=== PATIENT | female | born 1975 | race American Indian/Alaskan Native ===

== ENCOUNTER 2016-11-21 16:03 | Emergency (ER) | payer OTHER ==
[2016-11-21 16:11] VITALS: BP 131/89; PULSE 74; RESP 16; TEMP 98.2; O2SAT 99
--- NOTE | 2016-11-21 16:20 | ED PDOC ---
Upper Extremity Pain/Injury Time Seen by Provider: 11/21/16 16:11 Chief Complaint (Nursing): Finger,Hand,&Wrist Chief Complaint (Provider): left wrist pain History Per: Patient History/Exam Limitations: no limitations Onset/Duration Of Symptoms: Hrs (just prior to arrival) Current Symptoms Are (Timing): Still Present Severity: Moderate Additional Complaint(s): 41 year old right hand dominant female presents to ED with pain to left wrist status post lifting heavy bag of garbage. Patient felt pop in wrist area. She took 2 Motrin which did not help the pain. No associated numbness or tingling to affected area. Past Medical History Reviewed: Historical Data, Nursing Documentation, Vital Signs Vital Signs: Last Vital Signs Temp 98.2 F 11/21/16 16:08 Pulse 74 11/21/16 16:08 Resp 16 11/21/16 16:08 BP 131/89 11/21/16 16:08 Pulse Ox 99 11/21/16 16:08 - Medical History PMH: No Chronic Diseases - Surgical History Other surgeries: fibroid removal, ovarian cyst removal - Family History Family History: States: No Known Family Hx - Living Arrangements Living Arrangements: With Family - Social History Current smoker - smoking cessation education provided: Yes Alcohol: Social Drugs: Denies - Home Medications Home Medications: Ambulatory Orders Medication Instructions Recorded Ibuprofen [Motrin Tab] 800 mg PO Q8 PRN #20 tab 11/21/16 - Allergies Allergies/Adverse Reactions: Allergies Allergy/AdvReac Type Severity Reaction Status Date / Time No Known Allergies Allergy Verified 11/21/16 16:08 Review of Systems ROS Statement: Except As Marked, All Systems Reviewed And Found Negative Musculoskeletal: Positive for: Other (left wrist injury) Neurological: Negative for: Numbness (no tingling) Physical Exam - Reviewed Nursing Documentation Reviewed: Yes Vital Signs Reviewed: Yes - Physical Exam Appears: Positive for: Well, Non-toxic, No Acute Distress Eye Exam: Positive for: Normal appearance Neck: Positive for: Painless ROM Extremity: Positive for: Other (mild tenderness to dorsum of left wrist with full rom, slight swelling noted with no ecchymosis) Neurologic/Psych: Positive for: Alert, Oriented - ECG O2 Sat by Pulse Oximetry: 99 (RA) Pulse Ox Interpretation: Normal - Other Rad Left wrist x-ray X-Ray: Interpreted by Me, Viewed By Me X-Ray Interpretation: no fx/dis Medical Decision Making Medical Decision Making: Initial Impression: 41 year old with left wrist injury Initial Plan: * PO tylenol * X-ray left wrist 16:56 XR shows no fracture/dislocation, as read by DOMINIC. Will apply pre-made velcro splint to affected wrist for patient comfort, see procedure note for additional details. Patient is medically stable and requires no further treatment in the ED at this time. Patient will be discharged home with Rx for Motrin 800mg. Counseling was provided and all questions were answered regarding diagnosis and need for follow up with the referred orthopedist. There is agreement to discharge plan. Return if symptoms persist or worsen. Clinical Impression: wrist sprain Scribe Attestation: Documented by Debra Maloney, acting as a scribe for Ani Bentley PA-C. Provider Scribe Attestation: All medical record entries made by the Scribe were at my direction and personally dictated by me. I have reviewed the chart and agree that the record accurately reflects my personal performance of the history, physical exam, medical decision making, and the department course for this patient. I have also personally directed, reviewed, and agree with the discharge instructions and disposition. Procedures - Time-Out Type of Procedure: Splint Placement Site of Procedure: Left Wrist Correct Patient: Yes Correct Procedure: Yes Correct Site Marked: Yes - Splinting Location: Left Wrist Pre-Made Type: velcro Pre-Proc Neuro Vasc Exam: normal Post-Proc Neuro Vasc Exam: normal Progress: Good placement, neurovascular status remains intact, patient tolerated procedure well with no immediate complications. Disposition - Clinical Impression Clinical Impression: Wrist sprain - Patient ED Disposition Is Patient to be Admitted: No Counseled Patient/Family Regarding: Studies Performed, Diagnosis, Need For Followup, Rx Given - Disposition Referrals: Reji Vasquez III, MD [Staff Provider] - Disposition: Routine/Home Disposition Time: 17:21 Condition: STABLE Additional Instructions: Ice, rest and elevate affected area. Take rx meds as directed as needed for pain. Follow up with employee health and orthopedist. Prescriptions: Ibuprofen [Motrin Tab] 800 mg PO Q8 PRN #20 tab PRN Reason: Pain, Moderate (4-7) Instructions: Wrist Sprain (ED) Forms: [facility] ED School/Work Excuse
--- NOTE | 2016-11-21 16:57 | RAD ---
PROCEDURE: Left Wrist Radiographs. HISTORY: trauma COMPARISON: None. FINDINGS: BONES: Normal. No fracture. JOINTS: Normal. No dislocation. SOFT TISSUES: Normal. OTHER FINDINGS: None. IMPRESSION: No evidence of acute fracture or dislocation.
== END 2016-11-21 17:51 | disposition home or self-care (01) ==
LOC: H.ER 16:03
DX: S63.502A Unspecified sprain of left wrist, initial encounter (principal); X50.9XXA Other and unspecified overexertion or strenuous movements or postures, initial encounter; Y92.89 Other specified places as the place of occurrence of the external cause; F17.200 Nicotine dependence, unspecified, uncomplicated

== ENCOUNTER 2016-12-25 14:20 | Emergency (ER) | payer OTHER ==
[2016-12-25 14:29] VITALS: PULSE 88; RESP 20; O2SAT 95
[2016-12-25] MEDS ORDERED: Sodium Chloride 0.9% 1,000 ML IV STA (15:03)
--- NOTE | 2016-12-25 15:05 | ED PDOC ---
HPI: Female Pain Time Seen by Provider: 12/25/16 15:02 Chief Complaint (Nursing): Female Genitourinary Chief Complaint (Provider): vaginal bleeding, lightheaded History Per: Patient Additional Complaint(s): 41-year-old female with history of anemia and fibroids presents to emergency department with lightheadedness and dizziness that started 2 days ago. Patient states she has been bleeding heavily for the past 2 days and states she has had abnormal bleeding for the past several years secondary to fibroids. Patient has had 5 transfusions in the past. She denies any chest pain, palpitations, shortness of breath or dyspnea on exertion upon arrival. No associated fever or chills. No abdominal pain, nausea or vomiting. Past Medical History Reviewed: Historical Data, Nursing Documentation, Vital Signs Vital Signs: Last Vital Signs Temp 97.9 F 12/25/16 14:28 Pulse 88 12/25/16 14:28 Resp 20 12/25/16 14:28 BP 111/72 12/25/16 14:28 Pulse Ox 95 12/25/16 14:28 - Medical History PMH: Anemia - Surgical History Other surgeries: right oopherectomy - Family History Family History: States: No Known Family Hx - Living Arrangements Living Arrangements: With Family - Social History Current smoker - smoking cessation education provided: Yes Alcohol: Social Drugs: Denies - Home Medications Home Medications: Ambulatory Orders Medication Instructions Recorded Ibuprofen [Motrin Tab] 800 mg PO Q8 PRN #20 tab 11/21/16 Medroxyprogesterone Acetate 10 mg PO DAILY #30 tablet 12/25/16 [Provera] - Allergies Allergies/Adverse Reactions: Allergies Allergy/AdvReac Type Severity Reaction Status Date / Time No Known Allergies Allergy Verified 12/25/16 14:29 Review of Systems ROS Statement: Except As Marked, All Systems Reviewed And Found Negative Constitutional: Negative for: Fever, Chills, Weakness Cardiovascular: Positive for: Light Headedness. Negative for: Chest Pain, Palpitations, Edema Respiratory: Negative for: Cough Gastrointestinal: Negative for: Nausea, Vomiting, Abdominal Pain Neurological: Positive for: Dizziness. Negative for: Headache Physical Exam - Reviewed Nursing Documentation Reviewed: Yes Vital Signs Reviewed: Yes - Physical Exam Appears: Positive for: Well, Non-toxic, No Acute Distress Head Exam: Positive for: ATRAUMATIC, NORMAL INSPECTION Skin: Positive for: Normal Color. Negative for: Pallor, Rash Eye Exam: Positive for: Normal appearance, EOMI, PERRL Cardiovascular/Chest: Positive for: Regular Rate, Rhythm Respiratory: Positive for: Normal Breath Sounds Gastrointestinal/Abdominal: Positive for: Soft. Negative for: Tenderness, Distended, Guarding, Rebound Back: Negative for: L CVA Tenderness, R CVA Tenderness Extremity: Positive for: Normal ROM. Negative for: Pedal Edema Neurologic/Psych: Positive for: Alert, Oriented - Laboratory Results Result Diagrams: 12/25/16 15:45 12/25/16 15:45 Urine POC: Negative Urine dip results: Positive for: Blood (moderate). Negative for: Leukocyte Esterase, Nitrate, Ketones, Glucose, Bilirubin, Protein - ECG O2 Sat by Pulse Oximetry: 95 Pulse Ox Interpretation: Normal Medical Decision Making Medical Decision Makin41 year old female with lightheadness for the past 2 days, history of abnormal vaginal bleeding due to fibroids. Plan: CBC CMP EKG PT/PTT Type and screen IVF U test and U dip Hemoglobin is 6.9. Patient states that she feels symptomatically better after IV fluids were given. Dizziness and lightheadness have resolved. Patient has history of anemia and states her hemoglobin has been as low as 4 in the past. Patient was offered admission and blood transfusion but she does not want to stay in hospital as she feels better. Case was d/w Dr. Chakraborty, industrial welder taxation economist who states to start patient on provera 10 mg tabs daily and have her follow up in his office. Patient given rx provera along with initial dose in ED. Patient is aware she can return to ED at any time if worse. Repeat vitals are stable prior to discharge, patient is stable for discharge. Disposition - Clinical Impression Clinical Impression: Anemia, Fibroids, Vaginal bleeding - Patient ED Disposition Is Patient to be Admitted: No Counseled Patient/Family Regarding: Studies Performed, Diagnosis, Need For Followup, Rx Given - Disposition Referrals: Philippe Chakraborty MD [Staff Provider] - Disposition: Routine/Home Disposition Time: 17:07 Condition: STABLE Additional Instructions: Take prescription meds as directed. Drink plenty of fluids and get plenty of rest. Return to emergency department at any time if acutely worse, otherwise follow-up with Dr. Chakraborty in his office for further evaluation. Prescriptions: Medroxyprogesterone Acetate [Provera] 10 mg PO DAILY #30 tablet Instructions: Dysfunctional Uterine Bleeding (ED), Uterine Fibroids (ED), Anemia (ED) Forms: [facility] ED School/Work Excuse Results - Lab Results Lab Results: 12/25/16 12/25/16 12/25/16 16:04 16:04 15:45 WBC RBC Hgb Hct MCV MCH MCHC RDW Plt Count MPV Neut % (Auto) Lymph % (Auto) [place] % (Auto) Eos % (Auto) Baso % (Auto) Neut # Lymph # [place] # Eos # Baso # PT 9.9 INR 0.95 APTT 22.7 L Sodium 136 Potassium 4.2 Chloride 107 Carbon Dioxide 19 L Anion Gap 14 BUN 11 Creatinine 0.8 Est GFR ( Amer) > 60 Est GFR (Non-Af Amer) > 60 Random Glucose 87 Calcium 8.9 Total Bilirubin 0.4 AST 30 ALT 24 Alkaline Phosphatase 72 Total Protein 7.1 Albumin 3.9 Globulin 3.2 Albumin/Globulin Ratio 1.2 Blood Type Pending Antibody Screen Pending BBK History Checked No verified bt 12/25/16 15:45 WBC 13.3 H RBC 3.27 L Hgb 6.9 L Hct 22.8 L MCV 69.6 L MCH 21.0 L MCHC 30.2 L RDW 17.6 H Plt Count 309 MPV 8.7 Neut % (Auto) 69.5 Lymph % (Auto) 21.8 [place] % (Auto) 4.8 Eos % (Auto) 2.8 Baso % (Auto) 1.1 Neut # 9.2 H Lymph # 2.9 [place] # 0.6 Eos # 0.4 Baso # 0.2 PT INR APTT Sodium Potassium Chloride Carbon Dioxide Anion Gap BUN Creatinine Est GFR ( Amer) Est GFR (Non-Af Amer) Random Glucose Calcium Total Bilirubin AST ALT Alkaline Phosphatase Total Protein Albumin Globulin Albumin/Globulin Ratio Blood Type Antibody Screen BBK History Checked
[2016-12-25 15:55] LABS: BASO # 0.2 K/uL (0.0-0.2); BASO % 1.1 % (0.0-2.0); EOS # 0.4 K/uL (0.0-0.7); EOS % 2.8 % (0.0-4.0); HEMATOCRIT 22.8 % (34.0-47.0); LYMPH # 2.9 K/uL (1.0-4.3); LYMPH % 21.8 % (20.0-40.0); MEAN CELL VOLUME 69.6 fl (81.0-99.0); MEAN CORPUSCULAR HGB CONC 30.2 g/dL (33.0-37.0); MEAN PLATELET VOLUME 8.7 fl (7.2-11.7); MONO # 0.6 K/uL (0.0-0.8); MONO % 4.8 % (0.0-10.0); NEUT # 9.2 K/uL (1.8-7.0); NEUT % 69.5 % (50.0-75.0); NRBC % 0.3 % (0.0-0.0); RED CELL DISTRIBUTION WIDTH 17.6 % (11.5-14.5); WHITE BLOOD COUNT 13.3 K/uL (4.8-10.8)
[2016-12-25 16:13] LABS: ALB/GLOB RATIO 1.2 (1.0-2.1); ALKALINE PHOSPHATASE 72 U/L (38-126); ALT/SGPT 24 U/L (9-52); AST/SGOT 30 U/L (14-36); BILIRUBIN,TOTAL 0.4 mg/dl (0.2-1.3); BLOOD UREA NITROGEN 11 mg/dl (7-17); CALCIUM 8.9 mg/dL (8.4-10.2); CARBON DIOXIDE 19 mmol/L (22-30); CHLORIDE 107 mmol/L (98-107); GFR AFRICAN-AMERICAN > 60; GLUCOSE,RANDOM 87 mg/dL (65-105); POTASSIUM 4.2 MMOL/L (3.6-5.0); SODIUM 136 mmol/l (132-148); TOTAL PROTEIN 7.1 G/DL (6.3-8.2)
[2016-12-25 16:32] LABS: PARTIAL THROMBOPLASTIN TIME 22.7 SECONDS (23.3-32.5)
[2016-12-25 18:29] VITALS: BP 152/67; TEMP 98
== END 2016-12-25 18:29 | disposition home or self-care (01) ==
LOC: H.ER 14:20
DX: D25.9 Leiomyoma of uterus, unspecified (principal); D64.9 Anemia, unspecified; R42 Dizziness and giddiness; F17.200 Nicotine dependence, unspecified, uncomplicated

== ENCOUNTER 2017-07-04 12:45 | Emergency (ER) | payer SELFPAY ==
[2017-07-04 13:02] VITALS: BP 129/81; PULSE 86; RESP 18; TEMP 99.1; O2SAT 100
--- NOTE | 2017-07-04 13:27 | ED PDOC ---
HPI: Back Time Seen by Provider: 07/04/17 13:06 Chief Complaint (Nursing): Back Pain Chief Complaint (Provider): Back Pain History Per: Patient History/Exam Limitations: no limitations Onset/Duration Of Symptoms: Days (x1) Current Symptoms Are (Timing): Still Present Pain Scale Rating Of: 9 Associated Symptoms: None Exacerbating Factor(s): Sitting Additional Complaint(s): Fabio Harris is a 42 year old female, with no past medical history, who presents to the emergency department complaining of lower back pain radiating to her spine onset since yesterday. 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 She states the pain is worst when sitting. She took x2 Motrin 800mg today with no relief of symptoms. She denies any new numbness, tingling, bowel or bladder incontinence. No further medical complaints. PMD: Dr Lowery Past Medical History Reviewed: Historical Data, Nursing Documentation, Vital Signs Vital Signs: Last Vital Signs Temp 99.1 F 07/04/17 12:57 Pulse 86 07/04/17 12:57 Resp 18 07/04/17 12:57 BP 129/81 07/04/17 12:57 Pulse Ox 100 07/04/17 12:57 - Medical History PMH: Anemia Denies: Chronic Kidney Disease - Family History Family History: States: Unknown Family Hx - Social History Current smoker - smoking cessation education provided: Yes (Light smoker <10 cigarettes daily) Alcohol: Social Drugs: Denies - Home Medications Home Medications: Ambulatory Orders Medication Instructions Recorded Ibuprofen [Motrin Tab] 800 mg PO Q8 PRN #20 tab 11/21/16 Medroxyprogesterone Acetate 10 mg PO DAILY #30 tablet 12/25/16 [Provera] Cyclobenzaprine [Cyclobenzaprine 10 mg PO Q8H PRN #12 tab 07/04/17 HCl] - Allergies Allergies/Adverse Reactions: Allergies Allergy/AdvReac Type Severity Reaction Status Date / Time No Known Allergies Allergy Verified 12/25/16 14:29 Review of Systems ROS Statement: Except As Marked, All Systems Reviewed And Found Negative Genitourinary Female: Negative for: Incontinence (bowel or bladder) Musculoskeletal: Positive for: Back Pain (lower) Neurological: Negative for: Numbness (or tingling) Physical Exam - Reviewed Nursing Documentation Reviewed: Yes Vital Signs Reviewed: Yes - Physical Exam Appears: Positive for: Well, Non-toxic, No Acute Distress Head Exam: Positive for: ATRAUMATIC, NORMAL INSPECTION, NORMOCEPHALIC Skin: Positive for: Normal Color, Warm, Dry Eye Exam: Positive for: EOMI, Normal appearance, PERRL Neck: Positive for: Normal, Painless ROM, Supple Respiratory: Negative for: Respiratory Distress Back: Positive for: Vertebral Tenderness, Other (L-Spine tenderness) Extremity: Positive for: Normal ROM Neurologic/Psych: Positive for: Alert, Oriented - ECG O2 Sat by Pulse Oximetry: 100 (RA) Pulse Ox Interpretation: Normal Medical Decision Making Medical Decision Making: Initial Impression: Lower back pain Initial Plan: --Urine --Flexeril 10 mg PO --LS Spine AP/LAT [RAD] --reevaluation 1347 Lumbar Spine X-Ray FINDINGS: BONES: Normal alignment. No listhesis. No fracture. DISC SPACES: Unremarkable. OTHER FINDINGS: None. IMPRESSION: Unremarkable radiographs of the lumbar spine. PT reports feeling better on re-evaluation. ~ Scribe Attestation: Documented by Mario Alberto Mills, acting as a scribe for Dulce Fairchild PA-C. Provider Scribe Attestation: All medical record entries made by the Scribe were at my direction and personally dictated by me. I have reviewed the chart and agree that the record accurately reflects my personal performance of the history, physical exam, medical decision making, and the department course for this patient. I have also personally directed, reviewed, and agree with the discharge instructions and disposition. Disposition - Clinical Impression Clinical Impression: Back pain - Patient ED Disposition Is Patient to be Admitted: No Counseled Patient/Family Regarding: Diagnosis, Need For Followup, Rx Given - Disposition Disposition: Routine/Home Disposition Time: 15:05 Condition: GOOD Prescriptions: Cyclobenzaprine [Cyclobenzaprine HCl] 10 mg PO Q8H PRN #12 tab PRN Reason: Muscle Spasm Instructions: Acute Low Back Pain (ED) Forms: [employer] [facility] (Georgian)
--- NOTE | 2017-07-04 13:49 | RAD ---
PROCEDURE: Radiographs of the Lumbar Spine. HISTORY: back pain s/p lifting a heavy box at work COMPARISON: No prior. FINDINGS: BONES: Normal alignment. No listhesis. No fracture. DISC SPACES: Unremarkable. OTHER FINDINGS: None. IMPRESSION: Unremarkable radiographs of the lumbar spine.
== END 2017-07-04 15:10 | disposition home or self-care (01) ==
LOC: H.ER 12:45
DX: M62.838 Other muscle spasm (principal)

== ENCOUNTER 2017-07-30 09:41 | Emergency (ER) | payer OTHER, SELFPAY ==
[2017-07-30 09:48] VITALS: BP 107/62; PULSE 84; RESP 20; TEMP 98.1; O2SAT 100; BMI 31.4
[2017-07-30] MEDS ORDERED: Silver Sulfadiazine 1% CREAM (50 gm) TOP STA (10:56)
--- NOTE | 2017-07-30 10:56 | ED PDOC ---
HPI: General Adult Time Seen by Provider: 07/30/17 10:45 Chief Complaint (Nursing): Finger,Hand,&Wrist History Per: Patient Additional Complaint(s): Pt. states earlier at work today she accidentally spilled "hot grits" on her L 3rd digit causing a burn. Denies numbness, tingling, other injury. Past Medical History Reviewed: Historical Data, Nursing Documentation, Vital Signs Vital Signs: Last Vital Signs Temp 98.1 F 07/30/17 09:46 Pulse 84 07/30/17 09:46 Resp 20 07/30/17 09:46 BP 107/62 07/30/17 09:46 Pulse Ox 100 07/30/17 09:46 - Medical History PMH: Anemia Denies: Chronic Kidney Disease - Family History Family History: States: Unknown Family Hx - Immunization History Hx Tetanus Toxoid Vaccination: Yes ("within the last 5 years") - Home Medications Home Medications: Ambulatory Orders Medication Instructions Recorded Ibuprofen [Motrin Tab] 800 mg PO Q8 PRN #20 tab 11/21/16 Medroxyprogesterone Acetate 10 mg PO DAILY #30 tablet 12/25/16 [Provera] Cyclobenzaprine [Cyclobenzaprine 10 mg PO Q8H PRN #12 tab 07/04/17 HCl] - Allergies Allergies/Adverse Reactions: Allergies Allergy/AdvReac Type Severity Reaction Status Date / Time No Known Allergies Allergy Verified 12/25/16 14:29 Review of Systems ROS Statement: Except As Marked, All Systems Reviewed And Found Negative Physical Exam - Physical Exam Appears: Positive for: Well, Non-toxic, No Acute Distress Skin: Positive for: Normal Color, Warm. Negative for: Rash Pulses-Radial (L): 2+ Extremity: Positive for: Normal ROM, Other (L 3rd digit: on dorsal surface of DIP with partial thickness burn with non-intact vesicle with minimal surrounding erythema; no nail involvement) - ECG O2 Sat by Pulse Oximetry: 100 - Progress ED Course And Treament: Wound irrigated and cleansed. Silvadene cream applied over burn. DSD applied. Tylenol 975mg PO ordered. Disposition - Clinical Impression Clinical Impression: Burn - Patient ED Disposition Is Patient to be Admitted: No - Disposition Disposition: Routine/Home Disposition Time: 10:58 Condition: STABLE Additional Instructions: Apply silvadene cream 2-3 times a day. Take Tylenol or Motrin at home for pain. Follow up with [facility] for further evaluation. Instructions: Superficial Burn (ED) Print Language: HUNGARIAN
[2017-07-30] MEDS ORDERED: Silver Sulfadiazine 1% CREAM (50 gm) ONE (11:07)
== END 2017-07-30 11:13 | disposition home or self-care (01) ==
LOC: H.ER 09:41
DX: T23.322A Burn of third degree of single left finger (nail) except thumb, initial encounter (principal); T79.9XXA Unspecified early complication of trauma, initial encounter; X10.1XXA Contact with hot food, initial encounter